=== PATIENT | female | born 1960 | race Caucasian/White ===

== ENCOUNTER 2017-08-27 02:48 | Inpatient (IN) ==
[2017-08-23 12:12] LABS: HEMATOCRIT 42.2 % (37.0-47.0); HEMOGLOBIN 14.1 g/dL (12.0-16.0); MCHC 33.4 g/dL (33-37); MCV 95.9 FL (81-99); MPV 11.5 FL (7.4-10.4); RBC 4.4 XMIL (4.2-5.4)
[2017-08-23 12:48] LABS: AGAP 11; BUN 9 mg/dL (8-22); CALCIUM 9.3 mg/dL (8.8-10.2); CHLORIDE 101 mmol/L (98-107); COSMO 280; POTASSIUM 4.4 mmol/L (3.5-5.1); SODIUM 141 mmol/L (136-145); TCO2 29 mmol/L (25-35)
[2017-08-27] MEDS ORDERED: REGLAN ONE (05:35)
[2017-08-27] MEDS ORDERED: PEPCID ONE (05:35)
[2017-08-27] MEDS ORDERED: KEFZOL 1 GM/D5W 1 GM/50 ML IVPB ONE (05:35)
[2017-08-27] MEDS ORDERED: LR 1,000 ML ONE ×2 (05:35→09:18)
[2017-08-27] MEDS ORDERED: VERSED ONE (06:22)
[2017-08-27] MEDS ORDERED: XYLOCAINE 2% JELLY ONE (06:25)
[2017-08-27] MEDS ORDERED: NEO-SYNEPHRINE ONE (06:25)
[2017-08-27] MEDS ORDERED: XYLOCAINE-MPF 2% ONE (06:25)
[2017-08-27] MEDS ORDERED: DIPRIVAN 1% ONE (06:26)
[2017-08-27] MEDS ORDERED: QUELICIN (DOSE) ONE (06:27)
[2017-08-27] MEDS ORDERED: XYLOCAINE 1% ONE (06:28)
[2017-08-27] MEDS ORDERED: NS 1,000 ML ONE (06:28)
[2017-08-27] MEDS ORDERED: HEPARIN ONE (06:28)
[2017-08-27] MEDS ORDERED: NS 500 ML ONE (06:36)
[2017-08-27] MEDS ORDERED: NITROGLYCERIN 50 MG/D5W 50 MG/250 ML IV.SOLN ONE (06:38)
[2017-08-27] MEDS ORDERED: XYLOCAINE 2%/EPI 1:100,000 INJ ONE (06:45)
[2017-08-27] MEDS ORDERED: ZOFRAN ONE (07:11)
[2017-08-27] MEDS ORDERED: HEPARIN (DOSE) ONE (07:51)
[2017-08-27] MEDS ORDERED: MORPHINE ONE (11:16)
[2017-08-27] MEDS ORDERED: ROBINUL ONE (11:32)
[2017-08-27] MEDS ORDERED: NORCO-5 PO PRN (12:20)
[2017-08-27] MEDS ORDERED: ZOFRAN IV PRN (12:21)
[2017-08-27] MEDS: LR 1,000 ML IV SCH (13:49)
[2017-08-27] MEDS: NORCO-7.5 PO PRN ×2 (16:37→21:58)
[2017-08-27] MEDS ORDERED: ANORO ELLIPTA 62.5-25 MCG INH INH PRN (20:45)
[2017-08-27] MEDS ORDERED: BUSPAR PO PRN (20:45)
[2017-08-27] MEDS: ASPIRIN PO SCH (21:32)
[2017-08-28] MEDS: NORCO-7.5 PO PRN ×4 (05:32→20:55)
[2017-08-28] MEDS: LR 1,000 ML IV SCH ×3 (06:03→20:56)
[2017-08-28] MEDS: NORVASC PO SCH (08:19)
[2017-08-28] MEDS: COZAAR PO SCH (08:19)
[2017-08-28] MEDS: GLUCOPHAGE PO SCH (08:19)
[2017-08-28] MEDS: ASPIRIN PO SCH (08:19)
[2017-08-29] MEDS: ASPIRIN PO SCH ×2 (00:50→09:19)
[2017-08-29] MEDS: NORCO-7.5 PO PRN ×3 (00:50→11:15)
[2017-08-29] MEDS: LR 1,000 ML IV SCH (05:05)
[2017-08-29 07:24] VITALS: BP 134/59
[2017-08-29] MEDS: GLUCOPHAGE PO SCH (09:19)
[2017-08-29] MEDS: COZAAR PO SCH (09:19)
[2017-08-29] MEDS: NORVASC PO SCH (09:19)
[2017-08-30 08:41] LABS: I-STAT BE 0 mmoll (-2-3); I-STAT GLUCOSE 144 mg/dL (70-105); I-STAT HCO3 25.2 mmoll (22.0-26.0); I-STAT HEMATOCRIT 34 % (38-51); I-STAT HEMOGLOBIN 11.6 g/dL (11.5-17.5); I-STAT IONIZED CALCIUM 1.16 mmoll (1.12-1.32); I-STAT K 3.7 mmoll (3.5-4.9); I-STAT PCO2 42.9 mmHg (35.0-45.0); I-STAT SO2 100 % (95-98); I-STAT SODIUM 141 mmoll (138-146); I-STAT TCO2 27 mmoll (23-27); I-STAT pH 7.377 (7.350-7.450)
== END 2017-08-29 12:29 | disposition home or self-care (01) ==
LOC: SURHOLD 02:48 → ICU 11:52 → 4N 08-28 16:52
PROVIDERS: ADMIT Surgery; ATTEND Surgery

== ENCOUNTER 2019-04-05 23:35 | Inpatient (IN) ==
[2019-04-06] MEDS ORDERED: NS 1,000 ML IV ONE ×2 (00:15→00:16)
[2019-04-06] MEDS ORDERED: ROCEPHIN 1 GM in NS 50 ML IV ONE (00:16)
[2019-04-06 00:35] LABS: ALLEN TEST YES; BE -2.9 mmoll (-3.0-3.0); BLOOD TYPE ARTERIAL; HCO3-(ACT) 22.6 mmoll (20.0-26.0); METHB 0.9 % (0.0-1.5); MODALITY CANNULA; O2(CT) 14.7 mL/dL (15.0-23.0); O2HB 91.8 % (95.0-99.0); PCO2(98.6) 30 mmHg (35-45); PO2(98.6) 64 mmHg (60-100); SAMPLE BLOOD; SAO2 94.6 % (95.0-100.0); THB 11.4 g/dL (11.5-17.4); pH(98.6) 7.44 (7.35-7.45)
[2019-04-06 00:56] LABS: BASO# 0.04 X1000 (0.0-0.2); BASO% 0.3 % (0.0-0.8); EOS# 0.03 X1000 (0.0-0.7); EOS% 0.2 % (0.0-10.0); HEMATOCRIT 33.4 % (37.0-47.0); HEMOGLOBIN 11.5 g/dL (12.0-16.0); IMM GRAN# 0.04 X1000 (0.0-0.04); IMM GRAN% 0.3 % (0.0-0.5); LYMPH# 2.28 X1000 (1.2-3.4); LYMPH% 16.8 % (20.5-51.1); MCH 30.7 PG (27-31); MCHC 34.4 g/dL (33-37); MCV 89.3 FL (81-99); MONO# 1.25 X1000 (0.11-0.59); MONO% 9.2 % (1.7-9.3); MPV 11.7 FL (7.4-10.4); NEUT# 9.91 X1000 (1.4-6.5); NEUT% 73.2 % (42.2-75.2); PLT 286 X1000 (130-400); PROTIME 14.6 Seconds (11.0-16.0); RBC 3.74 XMIL (4.2-5.4); WBC 13.55 X1000 (4.8-10.8)
[2019-04-06 00:57] LABS: INR 1.05; PTT 33.2 Seconds (22.3-41.8)
[2019-04-06 01:06] LABS: ALB/GLOB RATIO 1.1; ALBUMIN 3.1 g/dL (3.5-5.0); CALCIUM 8.2 mg/dL (8.8-10.2); CREATININE 1.3 mg/dL (0.5-0.9); POTASSIUM 3.7 mmol/L (3.5-5.1); TOTAL BILIRUBIN 0.48 mg/dL (0.20-1.00)
[2019-04-06 01:27] LABS: BILIRUBIN URINE NEGATIVE (NEGATIVE); BLOOD URINE NEGATIVE (NEGATIVE); COLOR YELLOW; GLUCOSE URINE NEGATIVE (NEGATIVE); KETONE URINE NEGATIVE (NEGATIVE); LEUKOCYTES URINE NEGATIVE (NEGATIVE); NITRITE URINE NEGATIVE (NEGATIVE); PH URINE 5.5; PROTEIN URINE 70 mg/dL (NEGATIVE); TURBIDITY URINE HAZY (CLEAR); URINE RBC <10 /HPF (<10); URINE WBC <10 /HPF (<10); UROBILINOGEN URINE NORMAL (NORMAL)
[2019-04-06 01:41] LABS: URINE CASTS NONE SEEN; URINE CRYSTALS NONE SEEN; URINE SMALL ROUND CELLS NONE SEEN; URINE YEAST NONE SEEN
[2019-04-06 01:42] LABS: UR EPITHELIAL CELLS <10 /HPF (<10)
[2019-04-06 01:43] LABS: URINE BACTERIA 2+ /HPF
[2019-04-06 01:44] LABS: URINE SOURCE CATH
[2019-04-06 01:51] LABS: ACETAMINOPHEN 16.7 ug/mL (10-30); MAGNESIUM 1.7 mg/dL (1.5-2.7); SALICYLATES < 3.00 mg/dL (3-10)
--- NOTE | 2019-04-06 01:54 | PROVIDER DOCUMENTATION ---
This chart was entered by Mariam Corey Scribe, acting as scribe for Luma Hutchinson MD. HPI-General Adult - General Chief Complaint: B/P Problems Stated Complaint: generalized weakness Time Seen by Provider: 04/06/19 00:27 Source: patient, family, EMS Allergies/Adverse Reactions: Patient Allergies Allergy/AdvReac Type Severity Reaction Status Date / Time ketorolac [From Toradol] Allergy SWELLING Verified 08/23/17 10:01 Home Medications: Home Medication List Medication Instructions Recorded Confirmed Last Taken Type Amlodipine Besylate 10 mg PO DAILY 08/23/17 08/27/17 08/26/17 History Aspirin 81 mg PO BID 08/23/17 08/27/17 08/27/17 03:30 History Buspirone [Buspar] 10 mg PO TID PRN PRN 08/23/17 08/27/17 08/27/17 03:30 History Losartan Potassium 50 mg PO DAILY 08/23/17 08/27/17 08/26/17 History Metformin HCl 500 mg PO QAM 08/23/17 08/27/17 08/26/17 History Umeclidinium Brm/Vilanterol Tr 1 each IH TID PRN PRN 08/23/17 08/27/17 3 Days Ago History [Anoro Ellipta 62.5-25 Mcg INH] ~08/24/17 - History of Present Illness -Gen Adult Nature of Presenting Problems: 58 y/o female presents to ED with generalized weakness and fever onset 6 days ago. Family of pt reports she has been bedridden for the past 6 days. She states highest temperature of 104 and was given tylenol and advil at home prior to arrival. Family reports she has been altered, decreased urination, and loss of appetite. Pt is alert and oriented. Location of Pain/Injury: reports: generalized Pain Radiation: reports: no radiation Quality of Pain: reports: none Severity: reports: mild Onset/Duration: reports: 6 days ago Timing: reports: still present Context/Activities at Onset: reports: none Modifying Factors: improves with: nothing Associated Symptoms: reports: fever/chills, loss of appetite, weakness, other (decreased urination; AMS) Similar Symptoms Previously?: No Recently seen or treated by another doctor?: No Review of Systems - Adult - REVIEW OF SYSTEMS - ADULT Constitutional: reports: fever, other (AMS). denies: chills Eyes: reports: no symptoms reported Ears, Nose, Mouth & Throat: reports: no symptoms reported Cardiovascular: denies: chest pain, palpitations Respiratory: denies: cough, shortness of breath Gastrointestinal: reports: poor appetite. denies: abdominal pain, diarrhea, nausea, vomiting Genitourinary: reports: other (decreased urination). denies: incontinence Musculoskeletal: denies: back pain, joint pain Integumentary: reports: no symptoms reported Neurological: reports: other (weakness). denies: dizziness/vertigo, seizure Psychiatric: reports: no symptoms reported Endocrine: reports: no symptoms reported Hematologic/Lymphatic: reports: no symptoms reported Allergic/Immunologic: reports: no symptoms reported All Other Systems: Reviewed and Negative Past History - Adult - PAST MEDICAL HISTORY-ADULT Review of Records: reports: Old Records Reviewed, Nursing Assessment Review, Medications Reviewed Major Childhood Illnesses: reports: denies history Cardiovascular: reports: HTN Respiratory: reports: COPD Psychiatric: reports: anxiety Endocrine/Immune: reports: Diabetes - PRIOR SURGERIES/PROCEDURES Surgical/Procedure History: reports: tonsillectomy - IMMUNIZATION STATUS Childhood Immunizations: See Nurse Assessment Flu Vaccine: See Nurse Assessment - FAMILY HISTORY Family History: reviewed, not pertinent - SOCIAL HISTORY Smoking: greater than 1 pack/day Provider spent 3-5 mins advising pt. on dangers of tobacco.: Discussed manners to quit use, and f/u contacts for add'l counseling. Substance Use: none/never Alcohol Use Frequency: never Living Situation: family Physical Exam-General - PHYSICAL EXAM-ADULT Initial Vital Signs Reviewed: Yes - CONSTITUTIONAL General Appearance: appears well, alert, no apparent distress, lethargic - EYES Eyes: PERRL/EOMI, pink conjunctivae - HEAD, EARS, NOSE, MOUTH & THROAT HENMT: normocephalic/atraumatic, moist mucous membranes, normal ENT inspection - NECK Neck: non-tender, full range of motion - RESPIRATORY Respiratory: chest non-tender, lungs clear, normal breath sounds - CARDIOVASCULAR Cardiovascular: normal peripheral pulses, regular rate, rhythm - GASTROINTESTINAL (ABDOMEN) Abdominal Exam: normal bowel sounds, non tender, soft - MUSCULOSKELETAL Back Exam: normal inspection, no CVA tenderness Extremity: normal range of motion, non-tender, normal gait - SKIN Integumentary: normal color, warm/dry - NEUROLOGIC Neurologic: grossly normal - PSYCHIATRIC Psych/Mental Status: normal mood/affect, normal thought content, normal thought process Progress - PLAN OF CARE/RESULTS Progress/Plan/Lab Results: Orders Category Date Time Status Cardiac Monitoring DIRECTED Care 04/06/19 00:13 Active Finger Stick Blood Sugar (ED) DIRECTED Care 04/06/19 00:13 Active IV Insertion ORDERED Care 04/06/19 00:15 Active Notify MD of + Sepsis Screen NOW Care 04/06/19 00:15 Active Notify Physician As Ordered Care 04/06/19 00:15 Active Nursing- Obtain EKG ONCE Care 04/05/19 23:49 Active Oxygen Therapy- ED Nursing DIRECTED Care 04/06/19 00:13 Active Saline Loc NOW Care 04/06/19 00:[address] HEAD W/O CONTRAST [CT] Stat Exams 04/06/19 00:15 Ordered ABG [RESP] Routine Lab 04/06/19 00:13 Ordered BLOOD CULTURE [BLDCUL] Stat Lab 04/06/19 00:15 Uncollected CBC WITH DIFF [HEME] Stat Lab 04/05/19 23:49 Uncollected CBC WITH ELECTRONIC DIFF [HEME] Stat Lab 04/06/19 00:13 Uncollected CK PROFILE [SP CHEM] Stat Lab 04/06/19 00:13 Uncollected COMPREHENSIVE METABOLIC PANEL [CHEM] Stat Lab 04/05/19 23:49 Uncollected Flu Swab [INFLUENZA SCREEN A/B] Stat Lab 04/06/19 00:16 Uncollected LACTATE, PLASMA [CHEM] Q3H Lab 04/06/19 00:15 Uncollected LACTATE, PLASMA [CHEM] Q3H Lab 04/06/19 03:15 Uncollected LACTATE, PLASMA [CHEM] Q3H Lab 04/06/19 06:15 Uncollected LACTATE, PLASMA [CHEM] Stat Lab 04/06/19 00:13 Uncollected MAGNESIUM [CHEM] Stat Lab 04/06/19 00:15 Uncollected PROTIME WITH INR [COAG] Stat Lab 04/06/19 00:13 Uncollected PTT [COAG] Stat Lab 04/06/19 00:13 Uncollected TROPONIN T Stat Lab 04/05/19 23:49 Uncollected URINALYSIS [URINALYSIS] Stat Lab 04/06/19 00:13 Uncollected 0.9% Sodium Chloride Inj [Ns] 1,000 ml Med 04/06/19 00:15 Active IV 999 mls/hr 0.9% Sodium Chloride Inj [Ns] 1,000 ml Med 04/06/19 00:16 Active IV 999 mls/hr CefTRIAXONE [Rocephin] 1 gm Med 04/06/19 00:16 Active 0.9% Sodium Chloride Inj [Ns] 50 ml IV NOW Altered Mental Status Stat Oth 04/06/19 00:13 Ordered Oxygen Device Stat Oth 04/06/19 00:15 Active EKG [EKG] Stat Ther 04/05/19 23:49 Ordered Vital Signs - 24 hr 04/06/19 00:37 Temperature 98.5 F Pulse Rate 65 Respiratory Rate 18 Blood Pressure 94/59 O2 Sat by Pulse Oximetry 97 Laboratory Tests 04/06/19 04/06/19 04/06/19 00:20 00:20 00:20 WBC 13.55 H RBC 3.74 L Hgb 11.5 L Hct 33.4 L MCV 89.3 MCH 30.7 MCHC 34.4 RDW Std Deviation 14.0 Plt Count 286 MPV 11.7 H Immature Gran % (Auto) 0.3 Neut % (Auto) 73.2 Lymph % (Auto) 16.8 L Stanley % (Auto) 9.2 Eos % (Auto) 0.2 Baso % (Auto) 0.3 Immature Gran # (Auto) 0.04 Neut # (Auto) 9.91 H Lymph # (Auto) 2.28 Stanley # (Auto) 1.25 H Eos # (Auto) 0.03 Baso # (Auto) 0.04 PT INR PTT (Actin FS) Specimen Type Sample Site pH pCO2 pO2 HCO3 Base Excess Oxyhemoglobin ABG O2 Sat (Calculated) ABG O2 Saturation ABG Carboxyhemoglobin ABG Methemoglobin Dwayne Test A-a O2 Difference Total Hemoglobin Lactate Liter Flow Blood Gas Modality FiO2 % Sodium 135 L Potassium 3.7 Chloride 100 Carbon Dioxide 20 L Anion Gap 15 BUN 39 H Creatinine 1.3 H Estimated GFR/1.73 m2 42 BUN/Creatinine Ratio 30 Glucose 134 H Calculated Osmolality 281 Calcium 8.2 L Total Bilirubin 0.48 AST 30 ALT 15 Alkaline Phosphatase 68 Creatine Kinase 97 Troponin T < 0.010 Total Protein 6.0 L Albumin 3.1 L Globulin 2.9 Albumin/Globulin Ratio 1.1 Plasma Lactate 04/06/19 04/06/19 04/06/19 00:20 00:20 00:25 WBC RBC Hgb Hct MCV MCH MCHC RDW Std Deviation Plt Count MPV Immature Gran % (Auto) Neut % (Auto) Lymph % (Auto) Stanley % (Auto) Eos % (Auto) Baso % (Auto) Immature Gran # (Auto) Neut # (Auto) Lymph # (Auto) Stanley # (Auto) Eos # (Auto) Baso # (Auto) PT 14.6 INR 1.05 PTT (Actin FS) 33.2 Specimen Type ARTERIAL Sample Site R RADIAL pH 7.44 pCO2 30 L pO2 64 HCO3 22.6 Base Excess -2.9 Oxyhemoglobin 91.8 L ABG O2 Sat (Calculated) 14.7 L ABG O2 Saturation 94.6 L ABG Carboxyhemoglobin 2.10 ABG Methemoglobin 0.9 Dwayne Test YES A-a O2 Difference 112.0 Total Hemoglobin 11.4 L Lactate 0.80 Liter Flow 2.5 Blood Gas Modality CANNULA FiO2 % 30.0 Sodium Potassium Chloride Carbon Dioxide Anion Gap BUN Creatinine Estimated GFR/1.73 m2 BUN/Creatinine Ratio Glucose Calculated Osmolality Calcium Total Bilirubin AST ALT Alkaline Phosphatase Creatine Kinase Troponin T Total Protein Albumin Globulin Albumin/Globulin Ratio Plasma Lactate 1.0 Result Diagrams: 04/06/19 00:20 04/06/19 00:20 - EKG 1 Time of EKG reading by physician:: 01:18 EKG Read and Signed by:: Luma Hutchinson EKG Interpretation (*Must complete 3 of following elements*): Abnormal Rate: 65 Rhythm: NSR [place]: normal QRS: normal FL Interval: normal ST Wave: non-specific ST changes (consider inferior ischemia) - XRAY 1 XRAY Study: Chest Impression: See EMR Report - CT/MRI 1 CT Study: Head Impression: Normal (1. No acute intracranial injury or calvarial fracture. 2. Mild to moderate white matter small vessel disease with mild cerebral volume loss. -radiology) Departure - Departure Date of Disposition Decision: 04/06/19 Time of Disposition Decision: 02:14 DIAGNOSIS: Alteration consciousness, SIRS (systemic inflammatory response syndrome) Disposition: ADMITTED INPATIENT 09 Certified Medical Emergency: Emergent Condition: Stable Referrals and Follow-Ups: FUNMI AGUDELO [Primary Care Provider] - Discharge Education: Steps to Quit Smoking, [id number] - Critical Care Note This patient required my direct & personal management of CC.: No Attestation - Physician/ EVAN Attestation Patient care was provided by Advanced Practice Provider:: No The physician spent face to face time with patient:: Yes Advanced Practice Provider documentation review:: Supervising physician onsite and consulted in the evaluation and care of this patient. The physician did have a face to face encounter with the patient. This chart was documented by the indicated scribe, (Mariam Corey, Sylvester) and accurately reflects the services I performed and decisions made by me, Luma Hutchinson MD, as attested by the provider's signature.
[2019-04-06 02:57] LABS: UR AMPHETAMINES QUAL NONE DETECTED (NONE DETECT); UR BARBITUATES QUAL NONE DETECTED (NONE DETECT); UR BENZODIAZEPIN QUAL PRESUMPTIVE POSITIVE (NONE DETECT); UR CANNABINOIDS QUAL PRESUMPTIVE POSITIVE (NONE DETECT); UR COCAINE QUAL NONE DETECTED (NONE DETECT); UR METHADONE QUAL NONE DETECTED (NONE DETECT); UR OPIATES QUAL NONE DETECTED (NONE DETECT); UR OXYCODONE QUAL NONE DETECTED (NONE DETECT); UR PCP QUAL NONE DETECTED (NONE DETECT)
[2019-04-06] MEDS ORDERED: ASPIRIN PO ONE (03:18)
[2019-04-06] MEDS ORDERED: ZOFRAN IV PRN (03:40)
[2019-04-06 03:49] LABS: CHOLESTEROL 90 mg/dL (0-200); HDL 12 mg/dL (45-65); LDL 42 mg/dL; TRIGLYCERIDES 178 mg/dL (35-135); VLDL 36 mg/dL
--- NOTE | 2019-04-06 05:01 | HISTORY AND PHYSICAL ---
CHIEF COMPLAINT: Altered mental status. HISTORY OF PRESENT ILLNESS: Ms. Looney is a 58-year-old female who is alert and oriented times 3. However, she displays some general confusion on exam. She is somewhat of a poor historian. Granddaughter is at the bedside and tried to help with information during the interview. From what I understand, she has had increasing confusion over the last couple of days. Today, she had per the granddaughter a temperature of around 104. The fever and generalized weakness I believe had started around 6 days ago. She had decreased urination over that time. She had difficulty ambulating. She had also had a loss of appetite. She had no complaints in the emergency room except for mild low back pain when she sat up. I believe she has a history of hypertension, diabetes mellitus type 2, hyperlipidemia, coronary artery disease status post myocardial infarction and cardiac stenting as well as a left carotid endarterectomy. Also has some anxiety. Initial workup in the emergency room was fairly nonspecific. She had mild leukocytosis and appeared to be somewhat fluid volume depleted. Her toxicology screen was positive for benzodiazepines and cannabis. Chest x-ray appeared to be benign and CT of her head showed 2 possible old infarcts on the right side, but it did not appear to have anything acute. She will be admitted inpatient and placed on the medical floor for further evaluation and treatment. PAST MEDICAL HISTORY: Cervical cancer. See HPI. PREVIOUS SURGICAL HISTORY: Hysterectomy related to cancer, tonsillectomy, cardiac stenting possibly times 3, left carotid endarterectomy. SOCIAL HISTORY: Lives with her granddaughter. Smokes less than a pack a day. Denied illicit drugs. However, cannabis was in her drug screen. Denied alcohol. FAMILY HISTORY: Breast cancer in the mother and congestive heart failure in the father. ALLERGIES: Toradol. HOME MEDICATIONS: A list could not be obtained at the time of admission. Order was placed for Nursing to call the pharmacy and reconcile home medications in the computer. I believe the patient may take Plavix 75 mg. That was the only medication she was able to tell us. REVIEW OF SYSTEMS: Fourteen-point review of systems conducted with the patient. Pertinent positives listed above in the HPI. All other systems reviewed and found to be negative. PHYSICAL EXAMINATION: VITAL SIGNS: Temperature 98.5, pulse 64, respirations 24-33, blood pressure is 89/55, oxygen saturation 95% on room air. GENERAL: Pleasant 58-year-old female oriented to person, place, time and situation. However, she is somewhat confused during the interview. She is in no acute distress. HEENT: Head is atraumatic, normocephalic. Pupils equal, round, reactive to light. Extraocular eye movements intact. Sclera is anicteric. Oral mucosa is dry. NECK: Supple. No JVD. No thyromegaly. Trachea is midline. No cervical lymphadenopathy. CARDIAC: S1, S2 appreciated. No murmurs, gallops, rubs. LUNGS: Clear to auscultation bilaterally. No rhonchi, wheeze or rales. Symmetric rise and fall with respirations. ABDOMEN: Soft, nondistended, nontender. Bowel sounds present all 4 quadrants, normoactive. No pulsatile mass. No organomegaly. EXTREMITIES: No clubbing, cyanosis or edema. One-plus pedal pulses. GENITOURINARY: No bladder distention. Patient voids. Otherwise deferred. NEUROLOGICAL: Alert and oriented times 4. Cranial nerves 2 through 12 appear to be grossly intact. MUSCULOSKELETAL: 5/5 strength on right upper and lower extremity, 4/5 strength left upper and lower extremity. DIAGNOSTIC DATA: Chest x-ray: No pulmonary edema, no infiltrates. CT of the head shows 2 areas on the right side, possible old infarcts. We are awaiting official read. LABORATORY DATA: WBC 13.55. Hemoglobin 11.5. Hematocrit 33.4. Platelet count 286. Coagulation studies within normal limits. ABG: pH is 7.44, pCO2 of 30, pO2 of 64, bicarbonate 22.6. This was on 2.5 L nasal cannula. Sodium 135. Potassium 3.7. Chloride 100. Carbon dioxide 20. BUN 39. Creatinine 1.3. Glucose 134. Urine unremarkable. Toxicology screen positive for benzodiazepines and cannabinoids. ASSESSMENT AND PLAN: 1. Possible metabolic encephalopathy with differentials to include cerebrovascular accident. The patient does have an elevated BUN. It appears she has acute kidney injury. She also had a subjective fever at home with an unknown source and mild leukocytosis so it could be infectious in nature as well. Awaiting official read on CT scan. Recommend rehydration overnight and if the patient's mentation does not improve MRI with and without contrast tomorrow morning. She received 1 g of Rocephin in the emergency room. Wait on blood cultures at this point as there is no known source of infection. The patient has not been febrile since arrival to the emergency room. 2. Acute kidney injury. Patient received fluid bolusing with normal saline. We will continue saline on the medical floor. Continue to monitor strict I's and O's. 3. History of hypertension. Patient is now hypotensive. I am unsure which antihypertensive the patient takes at this time. Recommend holding this until her blood pressure normalizes. Continue fluids. 4. Diabetes mellitus with hyperglycemia. Check hemoglobin A1c. Sliding scale insulin with fingerstick blood sugar. 5. Hyperlipidemia. Check a lipid profile. Continue statin when medications are reconciled. 6. Coronary artery disease. I am unsure if the patient takes Plavix. She was somewhat confused but stated she did. We will not give aspirin at this time as I am not sure the patient would benefit from dual antiplatelet therapy at this point. We will give a 325 aspirin in the emergency room but we will not continue daily at this point. Further recommendations per patient clinical course. Dictated by PAOLA England for Brad Coats MD cc: PAOLA England Agree with the above. the following is my on face to face evaluation. patient with mild confusion which was reportedly worse prior to arrival. subtle left sided weakness on exam suggest possible stroke or other brain pathology. initial eval in the ED remarkable only for dehydration/mildly elevated creatinine. uncertain what to make of reports of fevers at home. has had none here. no cough, dyspnea, dysuria, nausea, vomiting, diarrhea, or rash. no neck pain/stiffness. no other meningeal signs. given abx in the ED. if fevers are noted here then will continue antibiotics and possibly ask ID to see. if no fevers are noted then will likely pursue neuro workup and leave off additional antibiotics. TAMMI
--- NOTE | 2019-04-06 05:27 | Diag Imaging Result Doc PS360 ---
EXAM: CT HEAD W/O CONTRAST HISTORY: Head injury TECHNIQUE: CT head without contrast COMPARISON: None. FINDINGS: No parenchymal hemorrhage. No epidural or subdural hematoma. No subarachnoid hemorrhage. There microvascular ischemic changes. No mass identified on this noncontrasted exam. No hydrocephalus. No sinus opacification. IMPRESSION: 1.No hemorrhage 2.Microvascular ischemic changes 3.A preliminary report was given at 1:05 AM This exam was performed using automated exposure control, adjustment of mA or kV according to patient size, and/or use of iterative reconstruction technique. Electronically signed by Axel Solis 04/06/2019 5:24 AM
[2019-04-06] MEDS ORDERED: HEPARIN IV PRN (06:07)
[2019-04-06] MEDS ORDERED: HEPARIN IV ONE ×2 (06:07→19:50)
[2019-04-06] MEDS ORDERED: HEPARIN 25,000 UNITS/D5W 25,000 UNIT/250 ML IV.SOLN IV SCH (06:15)
[2019-04-06] MEDS: NS 1,000 ML IV SCH ×3 (06:53→20:12)
[2019-04-06] MEDS: HUMALOG SUBQ SCH ×4 (06:56→22:43)
[2019-04-06 07:25] LABS: AGAP 14; BUN 33 mg/dL (8-22); CALCIUM 8.5 mg/dL (8.8-10.2); CHLORIDE 102 mmol/L (98-107); COSMO 279; CREATININE 0.8 mg/dL (0.5-0.9); ESTIMATED GFR > 60; GLUCOSE 135 mg/dL (70-104); POTASSIUM 3.6 mmol/L (3.5-5.1); SODIUM 135 mmol/L (136-145); TCO2 19 mmol/L (25-35)
--- NOTE | 2019-04-06 07:43 | Diag Imaging Result Doc PS360 ---
EXAM: CHEST-PORTABLE HISTORY: cp TECHNIQUE: Chest single view COMPARISON: None. FINDINGS: The lungs are well expanded. The heart is not enlarged. The vessels are not distended. There are increased interstitial markings in the right lung base. No effusion identified. IMPRESSION: Right lower lobe pneumonia. Electronically signed by Axel Solis 04/06/2019 7:41 AM
--- NOTE | 2019-04-06 08:03 | Diag Imaging Result Doc PS360 ---
EXAM: CT THORAX/ABD/PELVIS W/O CON HISTORY: febrile illness TECHNIQUE: 1. CT chest without contrast 2. CT abdomen and pelvis without contrast COMPARISON: Abdomen and pelvis compared to 10/29/2018 FINDINGS: Chest: There are dense infiltrates with air bronchograms in the right lower lobe. Moderate emphysema. Trace right pleural fluid. No left pleural fluid. No cardiomegaly. Prominent atherosclerosis. No aortic aneurysm. There are small mediastinal lymph nodes. Bilateral breast implants are present. Abdomen and pelvis: No calcified gallstones or adjacent inflammation. Normal noncontrasted liver, spleen, pancreas, and adrenal glands. There is perinephric stranding. No renal stones. No hydronephrosis. Severe atherosclerosis. No aortic aneurysm. No bowel obstruction. Trace fluid in the paracolic gutters. The urinary bladder is distended and is normal. The uterus has been removed. No pelvic mass. IMPRESSION: Chest: 1. Right lower lobe pneumonia 2. Emphysema Abdomen and pelvis: 1. Nonspecific perinephric stranding 2. Severe atherosclerosis 3. Hysterectomy A preliminary report was given at 3:46 AM This exam was performed using automated exposure control, adjustment of mA or kV according to patient size, and/or use of iterative reconstruction technique. Electronically signed by Axel Solis 04/06/2019 8:01 AM
[2019-04-06 10:03] LABS: URINE SOURCE CATH
[2019-04-06 10:24] LABS: BILIRUBIN URINE NEGATIVE (NEGATIVE); BLOOD URINE NEGATIVE (NEGATIVE); COLOR YELLOW; GLUCOSE URINE NEGATIVE (NEGATIVE); KETONE URINE NEGATIVE (NEGATIVE); LEUKOCYTES URINE NEGATIVE (NEGATIVE); NITRITE URINE NEGATIVE (NEGATIVE); PROTEIN URINE 50 mg/dL (NEGATIVE); SP GRAVITY URINE 1.017; TURBIDITY URINE HAZY (CLEAR); UROBILINOGEN URINE NORMAL (NORMAL)
[2019-04-06 10:30] LABS: UR EPITHELIAL CELLS <10 /HPF (<10); URINE BACTERIA NEGATIVE /HPF; URINE RBC <10 /HPF (<10); URINE WBC <10 /HPF (<10)
[2019-04-06 10:40] LABS: URINE CRYSTALS NONE SEEN; URINE YEAST NONE SEEN
[2019-04-06] MEDS: TYLENOL PO PRN (20:11)
[2019-04-06] MEDS: ZYVOX PO SCH (23:46)
[2019-04-07] MEDS: ROCEPHIN 1 GM in NS 50 ML IV SCH (01:26)
[2019-04-07] MEDS: HUMALOG SUBQ SCH ×4 (06:40→23:07)
[2019-04-07 06:55] LABS: BASO# 0.03 X1000 (0.0-0.2); BASO% 0.3 % (0.0-0.8); EOS# 0.06 X1000 (0.0-0.7); EOS% 0.6 % (0.0-10.0); HEMOGLOBIN 11.2 g/dL (12.0-16.0); IMM GRAN# 0.03 X1000 (0.0-0.04); IMM GRAN% 0.3 % (0.0-0.5); LYMPH# 1.63 X1000 (1.2-3.4); LYMPH% 15.2 % (20.5-51.1); MCH 30.1 PG (27-31); MCHC 32.9 g/dL (33-37); MCV 91.4 FL (81-99); MONO# 0.91 X1000 (0.11-0.59); MONO% 8.5 % (1.7-9.3); MPV 10.6 FL (7.4-10.4); NEUT# 8.05 X1000 (1.4-6.5); NEUT% 75.1 % (42.2-75.2); PLT 373 X1000 (130-400); RBC 3.72 XMIL (4.2-5.4); WBC 10.71 X1000 (4.8-10.8)
[2019-04-07 06:57] LABS: AGAP 12; BUN 15 mg/dL (8-22); CALCIUM 8.2 mg/dL (8.8-10.2); CHLORIDE 105 mmol/L (98-107); COSMO 283; CREATININE 0.6 mg/dL (0.5-0.9); ESTIMATED GFR > 60; GLUCOSE 118 mg/dL (70-104); POTASSIUM 4.1 mmol/L (3.5-5.1); SODIUM 141 mmol/L (136-145); TCO2 24 mmol/L (25-35)
[2019-04-07] MEDS: NS 1,000 ML IV SCH (08:34)
[2019-04-07] MEDS: ZYVOX PO SCH (08:34)
[2019-04-07] MEDS: TYLENOL PO PRN (08:49)
[2019-04-07] MEDS ORDERED: ZYVOX PO SCH (09:00)
--- NOTE | 2019-04-07 10:37 | PROGRESS NOTE ---
DATE: 04/06/2019 SUBJECTIVE: This is a 58-year-old patient of Dr. Charity Manning. She came in with altered mental status. She is alert, oriented x3. However, she displays some general confusion on exam, somewhat of a poor historian. Granddaughter at bedside to help with information. She had some increased confusion over the last couple of days. Temperature around 104, fever and generalized weakness. I believe that started about 6 days ago, decreased urination, difficulty ambulating, loss of appetite. She had no complaints in the emergency room except for mild lower back pain. History of hypertension, diabetes mellitus type 2, hyperlipidemia, coronary artery disease status post myocardial infarction, cardiac stenting as well as left carotid endarterectomy. She has also had more anxiety. Initial workup in the emergency room was fairly nonspecific. She had mild leukocytosis. Appeared to have somewhat some fluid. She was volume depleted. Toxicology screen was positive for benzodiazepines and cannabis. Chest x-ray appeared benign. A CT of her head showed 2 possible infarcts in the right side, but did not appear to have anything acute. So admitted to the hospital. She seemed to be doing better. Still had some times of confusion. LABORATORY DATA: On presentation, white count was 13,550, hematocrit 33, platelet count 286,000. Sodium 135, potassium 3.6, chloride 102, BUN 33, creatinine 0.8, calcium 8.5. ASSESSMENT AND PLAN: Possible metabolic encephalopathy, suspect it is related to medications. She appears to have some acute kidney injury. Hopefully, this is all volume contraction. She has some leukocytosis, which is nonspecific. We did a CT of the head. No hemorrhage or microvascular ischemic changes. CT of the abdomen and pelvis: Right lower lobe pneumonia, emphysema, nonspecific perinephric stranding, severe atherosclerosis, status post hysterectomy. So giving her some fluid. She is on ceftriaxone 1 g a day and Zyvox 600 mg p.o. q.12 hours. Her laboratory, one of the blood cultures was positive for coagulase negative Staphylococcus, which is probably a contaminant. Influenza screen was negative. So she is getting normal saline at 75 mL an hour. cc: Dwayne Rogers MD
--- NOTE | 2019-04-07 10:47 | PROGRESS NOTE ---
DATE: 04/07/2019 SUBJECTIVE: Ms. Looney is feeling better. She is oriented x3. She said she is breaking out in a sweat quite a bit. Did last night, broke out in a sweat last night as well. OBJECTIVE: Vital Signs: She is afebrile. Yesterday, temperature got up to 103. HEENT: Her pupils are equal. Neck: No distended neck veins. Lungs: Clear in all lung zaidi. Cardiovascular: Regular rhythm and rate without murmur or S3. Abdomen: Soft. Skin: Warm and dry. She said she is a little more hungry today. Encouraged her to eat a little more. She does not feel constipated. Urine output is a 1000 mL. Blood sugar 140, 112, 118. ASSESSMENT AND PLAN: 1. Metabolic encephalopathy, I think secondary to pneumonia. 2. Acute kidney injury. Renal function is improved. Good urine output. I think she was a little bit dry on presentation. 3. Hypertension. Watch blood pressure. 4. Diabetes mellitus. Blood sugar is under good control. 5. Hyperlipidemia. Check the lipid profile. 6. History of coronary artery disease. She is on Plavix. 7. She apparently has been told she needs oxygen and nebulized treatments at home which she has not done. We will continue her oxygen. Continue present orders. She is on Zyvox 600 mg p.o. q.12 hours. She is on ceftriaxone 1 g daily and on normal saline at 75 mL an hour. They have put her on some Heparin. I do not see any evidence of DVT or pulmonary thromboembolus. Looking back at her past medical history, I think we can stop the heparin. cc: Dwayne Rogers MD
[2019-04-08] MEDS: ROCEPHIN 1 GM in NS 50 ML IV SCH (01:11)
[2019-04-08] MEDS: HUMALOG SUBQ SCH ×3 (06:29→21:20)
--- NOTE | 2019-04-08 07:46 | EKG Report ---
Test Performed on : 04/06/2019 01:18:21 AM Test Reason : cp Blood Pressure : / mmHG Vent. Rate : 065 BPM Atrial Rate : 065 BPM P-R Int : 154 ms QRS Dur : 080 ms QT Int : 416 ms P-R-T Axes : 055 036 -14 degrees QTc Int : 432 ms Normal sinus rhythm. T wave abnormality, consider inferior ischemia Abnormal ECG No previous ECGs available Unconfirmed Result
--- NOTE | 2019-04-08 08:27 | Diag Imaging Result Doc PS360 ---
EXAM: CHEST-2 VIEWS 04/08/2019 HISTORY: pneumonia TECHNIQUE: PA and lateral chest COMMENT: There is what appears to be a right pleural fluid collection laterally and increased interstitial and alveolar opacity present in the right lower lobe. This is worse than on 04/06/2019. IMPRESSION: Right lower lobe pneumonia and pleural effusion. Electronically signed by Rito Mcclain 04/08/2019 8:25 AM
[2019-04-08] MEDS: NS 1,000 ML IV SCH ×2 (11:21→13:07)
--- NOTE | 2019-04-08 13:55 | PROGRESS NOTE ---
DATE: 04/08/2019 SUBJECTIVE: Ms. Looney does feel better. She is eating a little more, a little stronger, able to walk down the halls. She is pretty weak by her own admission sill. OBJECTIVE: Vital Signs: Temperature 98.2 degrees, pulse 68, respirations 20, blood pressure 162/65. HEENT: Pupils are equal and round. Lungs: Clear in all lung zaidi. Cardiovascular: Regular rhythm and rate without murmur or S3. Abdomen: Soft. Skin: Warm and dry. LABORATORY AND RADIOLOGIC STUDIES: Urine output was about 3300 mL. Chest x-ray with right lower lobe pneumonia, pleural effusion. ASSESSMENT AND PLAN: 1. Metabolic encephalopathy, think this was secondary to pneumonia and medications. 2. Acute kidney injury which seems to have improved. Creatinine down to 0.6. 3. Hypertension. Blood pressure well controlled. 4. Diabetes mellitus type 2. Sugars under good control. 5. Hyperlipidemia. 6. History of coronary artery disease. She has been on Plavix. 7. General weakness deconditioning. This seems to have improved. Continue ceftriaxone. Note that toxicology when she came in was positive for benzodiazepines and cannabinoids. She does seem to be doing better. Repeat chest x-ray, right lower lobe pneumonia. I will repeat another chest x-ray in the morning and check again her electrolytes and CBC. cc: Dwayne Rogers MD
[2019-04-09] MEDS: ROCEPHIN 1 GM in NS 50 ML IV SCH (01:38)
[2019-04-09] MEDS: HUMALOG SUBQ SCH (07:19)
[2019-04-09 08:04] LABS: BASO# 0.06 X1000 (0.0-0.2); BASO% 0.7 % (0.0-0.8); EOS# 0.17 X1000 (0.0-0.7); EOS% 2.1 % (0.0-10.0); HEMATOCRIT 30.7 % (37.0-47.0); HEMOGLOBIN 10.3 g/dL (12.0-16.0); IMM GRAN# 0.05 X1000 (0.0-0.04); IMM GRAN% 0.6 % (0.0-0.5); LYMPH# 2.07 X1000 (1.2-3.4); LYMPH% 25.1 % (20.5-51.1); MCH 30.6 PG (27-31); MCHC 33.6 g/dL (33-37); MCV 91.1 FL (81-99); MONO# 0.64 X1000 (0.11-0.59); MONO% 7.7 % (1.7-9.3); MPV 10.3 FL (7.4-10.4); NEUT# 5.27 X1000 (1.4-6.5); NEUT% 63.8 % (42.2-75.2); PLT 459 X1000 (130-400); RBC 3.37 XMIL (4.2-5.4); RDW 13.8 % (11.5-14.5); WBC 8.26 X1000 (4.8-10.8)
[2019-04-09 08:10] LABS: AGAP 14; BUN 6 mg/dL (8-22); CALCIUM 8.1 mg/dL (8.8-10.2); CHLORIDE 105 mmol/L (98-107); COSMO 283; CREATININE 0.4 mg/dL (0.5-0.9); ESTIMATED GFR > 60; GLUCOSE 98 mg/dL (70-104); POTASSIUM 3.3 mmol/L (3.5-5.1); SODIUM 143 mmol/L (136-145); TCO2 24 mmol/L (25-35)
[2019-04-09] MEDS: NS 1,000 ML IV SCH (08:20)
--- NOTE | 2019-04-09 09:36 | Diag Imaging Result Doc PS360 ---
EXAM: CHEST-2 VIEWS HISTORY: pneumonia TECHNIQUE: Chest two views COMPARISON: 04/08/2019 FINDINGS: The lungs are hyperexpanded. There are infiltrates in the right lower lobe. There is a tiny right pleural effusion. The left lung is clear. No cardiomegaly. IMPRESSION: Slight interval improvement in the right lower lobe pneumonia. Electronically signed by Axel Solis 04/09/2019 9:34 AM
--- NOTE | 2019-04-09 12:55 | DISCHARGE SUMMARY ---
ADMISSION DATE: 04/06/2019 DISCHARGE DATE: 04/09/2019 HISTORY: She is followed by Charity Manning. She presented with altered mental status. A 58- year-old who was alert and oriented x3 at the time of examination. However, she displayed some general confusion on exam at times, and somewhat a poor historian. Granddaughter at the bedside tried to help. From what I understand, she had increased confusion over the last couple of days. She had to get her granddaughter. Her granddaughter checked her temperature and it was 104 degrees by report. She had fever and generalized weakness, I believe this started about 6 days before this admission. She had decreased urination at that time by report, and difficulty ambulating. She also had loss of appetite. There were no such complaints in the emergency room except for low back pain when she sat up. I believe she has a history of hypertension, diabetes mellitus type 2, hyperlipidemia, coronary artery disease status post myocardial infarction, and cardiac stenting as well as left cardiac endarterectomy. There is a history of anxiety as well. She had mild leukocytosis and she appeared volume depleted. Her toxicology screen was positive for benzodiazepines and cannabis. Chest x-ray appeared to be benign. CT of the head showed two possible old infarcts on the right side but nothing acute. She was admitted and given some fluids. PAST MEDICAL HISTORY: 1. Status post hysterectomy related to cancer. 2. Tonsillectomy. 3. Cardiac stenting possibly x3. 4. Left carotid endarterectomy. ADMISSION DIAGNOSES: 1. Possible metabolic encephalopathy, suspect it may be related to cannabis and benzodiazepines plus volume depletion. She did have mild acute kidney injury and was given some fluids. CT of her scan was unremarkable. 2. She is admitted with acute kidney injury, and felt this was probably prerenal. 3. History of hypertension. 4. Diabetes mellitus type 2. She had some hyperglycemia, so the plan was to check her hemoglobin A1c. 5. Hyperlipidemia. 6. Coronary artery disease. There was no sign of active ischemia on exam. She seemed to improve with fluids. On her renal function, she had a creatinine of 0.8. She came in, and it went down to 0.6. It was 0.4 today on the day of discharge. Her electrolytes were followed. Hematocrit remained stable at about 30 and hemoglobin 10 even after hydration. Chest x-ray right lower lobe pneumonia was suspected, and she was put on antibiotics. Blood pressure well controlled. 7. Diabetes mellitus type 2. She was not eating much, but her appetite returned, and was eating better and requested to go home on 04/09/2019. DISCHARGE MEDICATIONS: We will put her on Levaquin 500 mg a day for another 7 days. I really took her off several of her home medicines. She can go back on her aspirin 81 mg a day. We will give her the Plavix 75 mg a day and lisinopril 40 mg a day, metformin and Lopressor 50 mg a day. Blood sugars well controlled. She is to follow up with primary care. cc: Dwayne Rogers MD
[2019-04-09 14:23] VITALS: BP 122/56
== END 2019-04-09 18:54 | disposition home or self-care (01) | DRG 193 ==
LOC: SUPCPDRO → ED 23:35 → 4N 04-06 03:31 → SUATTDRO 04-06 03:31
PROVIDERS: ATTEND Emergency Medicine
CPT/HCPCS: 70450; 71010; 71020; 71045; 71046; 71250; 74176; 80048; 80053; 80061; 80101; 80196; 80301; 80307; 80324; 80329; 80345; 80346; 80353; 80358; 80361; 80365; 81001; 82003; 82550; 82805; 82948; 83605; 83735; 83992; 84443; 84484; 85025; 85379; 85610; 85730; 87040; 87275; 87276; 87804; 93005; 94761; 96365; 99285; A9270; G0431; G0434; G0479; G0480; G6038; G6039; J0696; J1644; J7030; XXXXX